=== PATIENT | female | born 1990 | race Caucasian/White ===

== ENCOUNTER 2020-08-07 11:46 | Emergency (ER) | payer MEDICARE, MEDICAID ==
[~2020-08-07] VITALS: Ht 162.6 cm; Wt 64.1 kg
== END 2020-08-07 14:32 | disposition home or self-care (01) ==
LOC: ER 11:46
DX: S91.114A Laceration without foreign body of right lesser toe(s) without damage to nail, initial encounter (principal); F41.9 Anxiety disorder, unspecified; Z56.0 Unemployment, unspecified; Z88.8 Allergy status to other drugs, medicaments and biological substances; X58.XXXA Exposure to other specified factors, initial encounter; Y93.89 Activity, other specified; Y92.89 Other specified places as the place of occurrence of the external cause; Y99.8 Other external cause status
CPT/HCPCS: 12002; 73660; 99283

== ENCOUNTER 2023-07-25 16:21 | Emergency (ER) | payer MEDICARE, MEDICAID ==
[~2023-07-25] VITALS: Ht 165.1 cm; Wt 59.5 kg
[2023-07-25 16:22] VITALS: BP 184/153; PULSE 104; RESP 16; TEMP 98.6; O2SAT 100
[2023-07-25] MEDS ORDERED: CEPH-585 PO (16:35)
[2023-07-25] MEDS ORDERED: SULF1TAB49 PO (16:35)
== END 2023-07-25 16:53 | disposition home or self-care (01) ==
LOC: ER 16:22
DX: J34.0 Abscess, furuncle and carbuncle of nose (principal); Z88.5 Allergy status to narcotic agent
CPT/HCPCS: 99283